=== PATIENT | male | born 1945 | race Caucasian/White ===

== ENCOUNTER 2020-12-06 16:04 | Inpatient (IN) ==
[2020-12-07] MEDS ORDERED: Naloxone 0.4 MG/ML INJ IVP PRN (02:04)
[2020-12-07] MEDS ORDERED: Ondansetron 4 MG/2 ML VIAL IVP PRN (02:04)
[2020-12-07] MEDS ORDERED: Benzonatate 100 MG CAPSULE PO PRN (02:29)
[2020-12-07] MEDS ORDERED: D5% in Water 1,000 ML IVC PRN (02:42)
[2020-12-07] MEDS ORDERED: *HR* Dextrose 50 % in Water (Syg) 50 ML SYRINGE IVP PRN (02:42)
[2020-12-07] MEDS ORDERED: Dextrose Gel 15 GM/37.5 ML TUBE PO PRN ×2 (02:42)
[2020-12-07] MEDS ORDERED: Melatonin 3 MG TABLET PO PRN (02:46)
[2020-12-07] MEDS: Ipratropium 1 PUFF INHALER IH SCH ×4 (04:12→20:26)
[2020-12-07] MEDS ORDERED: *HR* Metoprolol 5 MG/5 ML VIAL IVP ONE ×2 (04:28→05:16)
[2020-12-07 04:30] LABS: Basophils # 0.1 K/mcL (0.0-0.2); Basophils % 0.3 %; Eosinophils % 0.2 %; Hematocrit 42.7 % (37.5-50.1); Hemoglobin 14.3 g/dL (12.9-16.9); Lymphocytes % 6.5 %; Mean Corpuscular HGB Conc 33.5 g/dL (31.6-35.5); Mean Corpuscular Hemoglobin 30.8 pg (28.0-33.3); Mean Platelet Volume 9.4 fL (9.4-12.4); Monocytes # 0.4 K/mcL (0.0-1.3); Monocytes % 2.5 %; Neutrophils # 13.6 K/mcL (1.6-8.9); Platelet Count 371 K/mcL (140-400); Red Blood Count 4.64 M/mcL (4.19-5.50); Red Cell Distribution Width 13.2 % (11.5-14.5); Segmented Neutrophils % 87.5 %; White Blood Count 15.5 K/mcL (4.3-11.1)
[2020-12-07] MEDS: *HR* Metoprolol 5 MG/5 ML VIAL IVP ONE (04:42)
[2020-12-07 04:49] LABS: Alanine Aminotransferase 64 Units/L (7-52); Albumin 2.8 g/dL (3.5-5.7); Alkaline Phosphatase 122 Units/L (34-104); Aspartate Amino Transferase 55 Units/L (13-39); Bilirubin,Direct 0.4 mg/dL (0.0-0.2); Bilirubin,Indirect 0.8 mg/dL (0.0-1.0); Bilirubin,Total 1.2 mg/dL (0.3-1.0); C-Reactive Protein 16 mg/L (Less than 10); Globulin 2.9 g/dL (2.4-3.5); Magnesium 1.8 mg/dL (1.6-2.6); Total Protein 5.7 g/dL (6.4-8.9)
[2020-12-07 05:31] LABS: BUN/Creatinine Ratio 24 (6-26); Blood Urea Nitrogen 18 mg/dL (8-23); Calcium 7.8 mg/dL (8.6-10.3); Carbon Dioxide 25 mEq/L (23-29); Chloride 104 mEq/L (98-107); Glucose 176 mg/dL (70-105); Osmolality,Calculated 292 (280-300); Potassium 3.5 mEq/L (3.5-5.1); Sodium 138 mEq/L (136-145); eGFR For African Americans > 60 (> 60); eGFR For Non-African Americans > 60 (> 60)
[2020-12-07] MEDS ORDERED: Perflutren Lipid Microsphere 1.3 ML in 0.9 % Sodium Chloride 8.7 ML IVP PRN (06:15)
[2020-12-07] MEDS: Insulin LISPRO 300 UNITS/3 ML VIAL SUBQ SCH ×4 (08:49→20:50)
[2020-12-07] MEDS: *HR* Enoxaparin 100 MG/ML SYRINGE SQ SCH ×3 (09:35→20:50)
[2020-12-07] MEDS ORDERED: QUEtiapine Fumarate 25 MG TABLET PO PRN (12:26)
[2020-12-07] MEDS ORDERED: Insulin LISPRO 300 UNITS/3 ML VIAL SUBQ SCH (21:00)
[2020-12-08] MEDS: Ipratropium 1 PUFF INHALER IH SCH ×4 (03:42→19:33)
[2020-12-08 05:50] LABS: BUN/Creatinine Ratio 27 (6-26); Blood Urea Nitrogen 18 mg/dL (8-23); Calcium 8.6 mg/dL (8.6-10.3); Carbon Dioxide 23 mEq/L (23-29); Chloride 102 mEq/L (98-107); Glucose 247 mg/dL (70-105); Osmolality,Calculated 290 (280-300); Potassium 3.8 mEq/L (3.5-5.1); Sodium 135 mEq/L (136-145); eGFR For African Americans > 60 (> 60); eGFR For Non-African Americans > 60 (> 60)
[2020-12-08 06:01] LABS: Basophils # 0.1 K/mcL (0.0-0.2); Basophils % 0.4 %; Eosinophils % 0.1 %; Hemoglobin 15.5 g/dL (12.9-16.9); Immature Granulocytes % 3.3 % (0-4); Lymphocytes # 1.4 K/mcL (0.6-4.6); Lymphocytes % 7.2 %; Mean Corpuscular HGB Conc 33.7 g/dL (31.6-35.5); Mean Platelet Volume 9.8 fL (9.4-12.4); Monocytes # 0.3 K/mcL (0.0-1.3); Monocytes % 1.8 %; Neutrophils # 16.7 K/mcL (1.6-8.9); Platelet Count 446 K/mcL (140-400); Red Cell Distribution Width 13.2 % (11.5-14.5); Segmented Neutrophils % 87.2 %; White Blood Count 19.1 K/mcL (4.3-11.1)
[2020-12-08] MEDS: Insulin LISPRO 300 UNITS/3 ML VIAL SUBQ SCH ×4 (07:22→20:11)
[2020-12-08] MEDS: *HR* Enoxaparin 100 MG/ML SYRINGE SQ SCH ×2 (07:24→19:56)
[2020-12-08] MEDS ORDERED: Perflutren Lipid Microsphere 1.3 ML in 0.9 % Sodium Chloride 8.7 ML IVP PRN ×3 (08:06→15:44)
[2020-12-08] MEDS: Insulin DETEMIR 100 UNIT/ML X5UNITS SUBQ SCH ×2 (10:25→19:56)
[2020-12-09] MEDS: Ipratropium 1 PUFF INHALER IH SCH ×4 (03:29→22:53)
[2020-12-09 06:48] LABS: Basophils # 0.1 K/mcL (0.0-0.2); Basophils % 0.3 %; Eosinophils % 0.1 %; Hematocrit 43.2 % (37.5-50.1); Hemoglobin 14.9 g/dL (12.9-16.9); Immature Granulocytes % 3.2 % (0-4); Lymphocytes # 1.5 K/mcL (0.6-4.6); Lymphocytes % 6.6 %; Mean Corpuscular HGB Conc 34.5 g/dL (31.6-35.5); Mean Corpuscular Hemoglobin 31.2 pg (28.0-33.3); Mean Corpuscular Volume 90.6 fL (83.0-100.0); Mean Platelet Volume 9.7 fL (9.4-12.4); Monocytes # 0.6 K/mcL (0.0-1.3); Monocytes % 2.5 %; Neutrophils # 19.4 K/mcL (1.6-8.9); Platelet Count 446 K/mcL (140-400); Red Blood Count 4.77 M/mcL (4.19-5.50); Red Cell Distribution Width 13.2 % (11.5-14.5); Segmented Neutrophils % 87.3 %; White Blood Count 22.2 K/mcL (4.3-11.1)
[2020-12-09 07:06] LABS: BUN/Creatinine Ratio 28 (6-26); Blood Urea Nitrogen 17 mg/dL (8-23); Calcium 8.6 mg/dL (8.6-10.3); Carbon Dioxide 23 mEq/L (23-29); Chloride 106 mEq/L (98-107); Glucose 121 mg/dL (70-105); Osmolality,Calculated 291 (280-300); Sodium 139 mEq/L (136-145); eGFR For African Americans > 60 (> 60); eGFR For Non-African Americans > 60 (> 60)
[2020-12-09] MEDS: *HR* Enoxaparin 100 MG/ML SYRINGE SQ SCH ×2 (07:55→19:36)
[2020-12-09] MEDS: DilTIAZem CD (24hr) 120 MG CAP.ER.24H PO SCH ×4 (07:56→18:26)
[2020-12-09] MEDS: Insulin LISPRO 300 UNITS/3 ML VIAL SUBQ SCH ×4 (07:58→20:55)
[2020-12-09 08:42] LABS: Bacteria,Urine Few per hpf (None-Few); Bilirubin,Urine Negative (Negative); Blood,Urine Large (Negative); Clarity,Urine Turbid (Clear); Color,Urine Yellow (Yellow); Glucose,Urine (UA) 150 mg/dL (Normal); Ketones,Urine Negative (Negative); Leukocyte Esterase,Urine Moderate (Negative); Mucus,Urine Few per lpf (None-Few); Nitrite,Urine Negative (Negative); PH,Urine 6.5 pH Units (5.0-8.0); Protein,Urine Trace mg/dL (Neg-Trace); RBC,Urine TNTC per hpf (0-3); Specific Gravity,Urine 1.018 (1.010-1.025); Squamous Epithelial Cell,Urine Few per hpf (None-Few); WBC,Urine TNTC per hpf (0-3)
[2020-12-09] MEDS: cefTRIAXone 1,000 MG in Water for inj. (sterile) 10 ML IVP SCH (12:24)
[2020-12-09] MEDS ORDERED: *HR* Metoprolol 5 MG/5 ML VIAL IVP ONE ×4 (13:47→18:14)
[2020-12-09] MEDS: *HR* Metoprolol 5 MG/5 ML VIAL IVP ONE (17:05)
[2020-12-09] MEDS: Insulin DETEMIR 100 UNIT/ML X5UNITS SUBQ SCH (19:36)
[2020-12-10] MEDS: Ipratropium 1 PUFF INHALER IH SCH ×4 (03:47→20:39)
[2020-12-10] MEDS: *HR* Enoxaparin 100 MG/ML SYRINGE SQ SCH ×2 (07:59→21:18)
[2020-12-10] MEDS: cefTRIAXone 1,000 MG in Water for inj. (sterile) 10 ML IVP SCH (08:00)
[2020-12-10] MEDS: DilTIAZem CD (24hr) 120 MG CAP.ER.24H PO SCH (08:00)
[2020-12-10] MEDS: Insulin LISPRO 300 UNITS/3 ML VIAL SUBQ SCH ×4 (08:01→21:19)
[2020-12-10 16:46] LABS: Basophils % 0.3 %; Red Cell Distribution Width 13.2 % (11.5-14.5)
[2020-12-10 16:47] LABS: Basophils # 0.1 K/mcL (0.0-0.2); Hematocrit 37.2 % (37.5-50.1); Hemoglobin 12.9 g/dL (12.9-16.9); Immature Granulocytes % 4.4 % (0-4); Lymphocytes # 1.3 K/mcL (0.6-4.6); Mean Corpuscular HGB Conc 34.7 g/dL (31.6-35.5); Mean Corpuscular Hemoglobin 31.5 pg (28.0-33.3); Mean Corpuscular Volume 90.7 fL (83.0-100.0); Mean Platelet Volume 9.4 fL (9.4-12.4); Monocytes # 0.6 K/mcL (0.0-1.3); Monocytes % 2.3 %; Platelet Count 389 K/mcL (140-400); White Blood Count 26.4 K/mcL (4.3-11.1)
[2020-12-10 16:54] LABS: Neutrophils # 23.2 K/mcL (1.6-8.9)
[2020-12-10 17:06] LABS: BUN/Creatinine Ratio 50 (6-26); Blood Urea Nitrogen 35 mg/dL (8-23); Calcium 8.4 mg/dL (8.6-10.3); Carbon Dioxide 22 mEq/L (23-29); Chloride 98 mEq/L (98-107); Glucose 358 mg/dL (70-105); Osmolality,Calculated 290 (280-300); Potassium 4.7 mEq/L (3.5-5.1); Sodium 129 mEq/L (136-145); eGFR For African Americans > 60 (> 60); eGFR For Non-African Americans > 60 (> 60)
[2020-12-10 17:17] LABS: Platelet Estimate Normal (Normal); Smudge Cells Present (Not Present)
[2020-12-10] MEDS: Insulin DETEMIR 100 UNIT/ML X5UNITS SUBQ SCH (21:19)
[2020-12-11 04:38] LABS: Basophils # 0.1 K/mcL (0.0-0.2); Basophils % 0.4 %; Hematocrit 34.4 % (37.5-50.1); Hemoglobin 11.8 g/dL (12.9-16.9); Immature Granulocytes % 4.8 % (0-4); Lymphocytes # 2.2 K/mcL (0.6-4.6); Lymphocytes % 7.4 %; Mean Corpuscular HGB Conc 34.3 g/dL (31.6-35.5); Mean Corpuscular Hemoglobin 31.1 pg (28.0-33.3); Mean Corpuscular Volume 90.8 fL (83.0-100.0); Monocytes # 1.1 K/mcL (0.0-1.3); Monocytes % 3.7 %; Neutrophils # 24.8 K/mcL (1.6-8.9); Nucleated Red Blood Cells 0.1 /100 WBC (0); Platelet Count 359 K/mcL (140-400); Red Blood Count 3.79 M/mcL (4.19-5.50); Red Cell Distribution Width 13.4 % (11.5-14.5); Segmented Neutrophils % 83.7 %; White Blood Count 29.6 K/mcL (4.3-11.1)
[2020-12-11] MEDS: Ipratropium 1 PUFF INHALER IH SCH ×4 (04:41→19:58)
[2020-12-11 04:52] LABS: BUN/Creatinine Ratio 60 (6-26); Blood Urea Nitrogen 38 mg/dL (8-23); Calcium 8.3 mg/dL (8.6-10.3); Carbon Dioxide 21 mEq/L (23-29); Chloride 102 mEq/L (98-107); Glucose 238 mg/dL (70-105); Osmolality,Calculated 289 (280-300); Potassium 4.4 mEq/L (3.5-5.1); Sodium 131 mEq/L (136-145); eGFR For African Americans > 60 (> 60); eGFR For Non-African Americans > 60 (> 60)
[2020-12-11] MEDS: Insulin LISPRO 300 UNITS/3 ML VIAL SUBQ SCH ×4 (08:35→21:03)
[2020-12-11] MEDS: *HR* Enoxaparin 100 MG/ML SYRINGE SQ SCH ×2 (08:36→20:33)
[2020-12-11] MEDS ORDERED: Insulin LISPRO 300 UNITS/3 ML VIAL SUBQ SCH (11:31)
[2020-12-11] MEDS ORDERED: *HR* Metoprolol 5 MG/5 ML VIAL IVP ONE (17:54)
[2020-12-11] MEDS ORDERED: 0.9 % Sodium Chloride 500 ML IVC ONE ×2 (17:55→20:29)
[2020-12-11] MEDS: DilTIAZem CD (24hr) 120 MG CAP.ER.24H PO SCH (18:07)
[2020-12-11] MEDS: Insulin DETEMIR 100 UNIT/ML X5UNITS SUBQ SCH (21:04)
[2020-12-12] MEDS: Ipratropium 1 PUFF INHALER IH SCH ×4 (03:51→20:29)
[2020-12-12 07:43] LABS: BUN/Creatinine Ratio 65 (6-26); Blood Urea Nitrogen 39 mg/dL (8-23); Calcium 7.8 mg/dL (8.6-10.3); Carbon Dioxide 19 mEq/L (23-29); Chloride 102 mEq/L (98-107); Glucose 274 mg/dL (70-105); Osmolality,Calculated 289 (280-300); Potassium 4.8 mEq/L (3.5-5.1); Sodium 130 mEq/L (136-145); eGFR For African Americans > 60 (> 60); eGFR For Non-African Americans > 60 (> 60)
[2020-12-12 07:54] LABS: Hemoglobin 10.8 g/dL (12.9-16.9); Nucleated Red Blood Cells 0.8 /100 WBC (0); Red Cell Distribution Width 13.9 % (11.5-14.5)
[2020-12-12 07:56] LABS: Hematocrit 30.4 % (37.5-50.1); Mean Corpuscular HGB Conc 35.5 g/dL (31.6-35.5); Mean Corpuscular Hemoglobin 31.9 pg (28.0-33.3); Mean Corpuscular Volume 89.7 fL (83.0-100.0); Mean Platelet Volume 10.8 fL (9.4-12.4); Platelet Count 328 K/mcL (140-400); Red Blood Count 3.39 M/mcL (4.19-5.50)
[2020-12-12 08:09] LABS: White Blood Count 44.5 K/mcL (4.3-11.1)
[2020-12-12] MEDS: Insulin LISPRO 300 UNITS/3 ML VIAL SUBQ SCH ×4 (08:16→21:01)
[2020-12-12] MEDS: *HR* Enoxaparin 100 MG/ML SYRINGE SQ SCH ×2 (08:17→20:45)
[2020-12-12 09:16] LABS: Lymphocytes # 3.1 K/mcL (0.6-4.6); Monocytes # 1.3 K/mcL (0.0-1.3); Neutrophils # 39.6 K/mcL (1.6-8.9); Smudge Cells Present (Not Present)
[2020-12-12 09:17] LABS: Platelet Estimate Normal (Normal); Toxic Granulation Present (Not Present)
[2020-12-12 09:18] LABS: Burr Cells 1+ (Not Present)
[2020-12-12 16:12] LABS: Bacteria,Urine Few per hpf (None-Few); Bilirubin,Urine Negative (Negative); Blood,Urine Moderate (Negative); Clarity,Urine Clear (Clear); Color,Urine Yellow (Yellow); Glucose,Urine (UA) 50 mg/dL (Normal); Ketones,Urine Negative (Negative); Leukocyte Esterase,Urine Small (Negative); Nitrite,Urine Negative (Negative); Protein,Urine Trace mg/dL (Neg-Trace); RBC,Urine 0-3 per hpf (0-3); Squamous Epithelial Cell,Urine Few per hpf (None-Few)
[2020-12-12] MEDS: Nystatin SUSP 5 ML UD.LIQ PO SCH ×2 (17:43→21:02)
[2020-12-12] MEDS: Insulin DETEMIR 100 UNIT/ML X5UNITS SUBQ SCH (21:02)
[2020-12-13] MEDS ORDERED: Simethicone 80 MG TAB.CHEW PO PRN (02:50)
[2020-12-13] MEDS: Saline Nasal Spray 44 ML BOTTLE NS PRN (03:08)
[2020-12-13] MEDS: Ipratropium 1 PUFF INHALER IH SCH ×5 (03:33→20:29)
[2020-12-13 06:22] LABS: Hematocrit 31.2 % (37.5-50.1); Nucleated Red Blood Cells 1.9 /100 WBC (0)
[2020-12-13 06:23] LABS: Hemoglobin 10.6 g/dL (12.9-16.9); Mean Corpuscular Hemoglobin 31.9 pg (28.0-33.3); Platelet Count 304 K/mcL (140-400); Red Blood Count 3.32 M/mcL (4.19-5.50); Red Cell Distribution Width 14.3 % (11.5-14.5)
[2020-12-13 06:27] LABS: White Blood Count 41.2 K/mcL (4.3-11.1)
[2020-12-13 06:41] LABS: BUN/Creatinine Ratio 47 (6-26); Blood Urea Nitrogen 33 mg/dL (8-23); Carbon Dioxide 21 mEq/L (23-29); Chloride 95 mEq/L (98-107); Glucose 266 mg/dL (70-105); Osmolality,Calculated 279 (280-300); Potassium 4.7 mEq/L (3.5-5.1); Sodium 126 mEq/L (136-145); eGFR For African Americans > 60 (> 60); eGFR For Non-African Americans > 60 (> 60)
[2020-12-13 06:52] LABS: Lymphocytes # 5.8 K/mcL (0.6-4.6); Monocytes # 2.5 K/mcL (0.0-1.3); Platelet Estimate Normal (Normal); Toxic Granulation Present (Not Present)
[2020-12-13] MEDS ORDERED: Apixaban 5 MG TABLET PO SCH (09:00)
[2020-12-13] MEDS: Insulin LISPRO 300 UNITS/3 ML VIAL SUBQ SCH ×4 (13:02→21:55)
[2020-12-13] MEDS: Nystatin SUSP 5 ML UD.LIQ PO SCH ×4 (13:03→22:08)
[2020-12-13] MEDS: 0.9 % Sodium Chloride 1,000 ML IVC SCH (13:08)
[2020-12-13] MEDS: DilTIAZem CD (24hr) 240 MG CAP.ER.24H PO SCH (13:33)
[2020-12-13] MEDS ORDERED: Lidocaine -MPF 2% 5 ML VIAL ONE (14:50)
[2020-12-13] MEDS ORDERED: *HR* Propofol 200 MG/20 ML VIAL IVP ONE (14:50)
[2020-12-13] MEDS: Acetaminophen 325 MG TABLET PO PRN (16:12)
[2020-12-13] MEDS: Insulin DETEMIR 100 UNIT/ML X5UNITS SUBQ SCH (21:55)
[2020-12-14] MEDS: *HR* Enoxaparin 100 MG/ML SYRINGE SQ SCH (03:09)
[2020-12-14] MEDS: Ipratropium 1 PUFF INHALER IH SCH ×4 (03:53→20:08)
[2020-12-14] MEDS: 0.9 % Sodium Chloride 1,000 ML IVC SCH (06:06)
[2020-12-14] MEDS: Insulin LISPRO 300 UNITS/3 ML VIAL SUBQ SCH ×4 (09:57→21:11)
[2020-12-14] MEDS: Nystatin SUSP 5 ML UD.LIQ PO SCH ×4 (10:02→21:10)
[2020-12-14 10:34] LABS: BUN/Creatinine Ratio 35 (6-26); Blood Urea Nitrogen 20 mg/dL (8-23); Calcium 7.3 mg/dL (8.6-10.3); Carbon Dioxide 24 mEq/L (23-29); Chloride 99 mEq/L (98-107); Glucose 218 mg/dL (70-105); Osmolality,Calculated 273 (280-300); Potassium 4.3 mEq/L (3.5-5.1); Sodium 127 mEq/L (136-145); eGFR For African Americans > 60 (> 60); eGFR For Non-African Americans > 60 (> 60)
[2020-12-14] MEDS: DilTIAZem CD (24hr) 240 MG CAP.ER.24H PO SCH (11:01)
[2020-12-14] MEDS: Fluconazole 100 MG TABLET PO SCH ×2 (11:02→21:10)
[2020-12-14 13:42] LABS: Basophils % 0.1 %; Hematocrit 22.7 % (37.5-50.1); Hemoglobin 7.7 g/dL (12.9-16.9); Immature Granulocytes % 3.9 % (0-4); Lymphocytes # 1.4 K/mcL (0.6-4.6); Lymphocytes % 7.7 %; Mean Corpuscular HGB Conc 33.9 g/dL (31.6-35.5); Mean Corpuscular Hemoglobin 30.9 pg (28.0-33.3); Mean Corpuscular Volume 91.2 fL (83.0-100.0); Mean Platelet Volume 10.1 fL (9.4-12.4); Monocytes % 5.7 %; Neutrophils # 14.6 K/mcL (1.6-8.9); Nucleated Red Blood Cells 0.4 /100 WBC (0); Platelet Count 153 K/mcL (140-400); Red Blood Count 2.49 M/mcL (4.19-5.50); Red Cell Distribution Width 14.8 % (11.5-14.5); Segmented Neutrophils % 82.6 %; White Blood Count 17.7 K/mcL (4.3-11.1)
[2020-12-14 15:23] LABS: Basophils % 0.2 %; Eosinophils % 0.1 %; Hemoglobin 8.2 g/dL (12.9-16.9); Immature Granulocytes % 3.4 % (0-4); Lymphocytes # 1.2 K/mcL (0.6-4.6); Lymphocytes % 6.2 %; Mean Corpuscular HGB Conc 35.7 g/dL (31.6-35.5); Mean Corpuscular Hemoglobin 33.2 pg (28.0-33.3); Mean Corpuscular Volume 93.1 fL (83.0-100.0); Mean Platelet Volume 10.5 fL (9.4-12.4); Monocytes # 1.1 K/mcL (0.0-1.3); Monocytes % 5.7 %; Neutrophils # 16.3 K/mcL (1.6-8.9); Nucleated Red Blood Cells 0.3 /100 WBC (0); Platelet Count 161 K/mcL (140-400); Red Blood Count 2.47 M/mcL (4.19-5.50); Red Cell Distribution Width 15.1 % (11.5-14.5); Segmented Neutrophils % 84.4 %; White Blood Count 19.3 K/mcL (4.3-11.1)
[2020-12-14] MEDS ORDERED: 0.9 % Sodium Chloride 250 ML IVC ONE (16:24)
[2020-12-14] MEDS ORDERED: 0.9 % Sodium Chloride 250 ML ONE (16:31)
[2020-12-14] MEDS ORDERED: 0.9 % Sodium Chloride 500 ML IVC ONE (17:14)
[2020-12-14 17:41] LABS: Hematocrit 23.6 % (37.5-50.1); Hemoglobin 8.1 g/dL (12.9-16.9)
[2020-12-14 17:53] LABS: INR 1.1; Prothrombin Time 12.3 Seconds (9.4-12.1)
[2020-12-14 17:55] LABS: Activated Partial Thrombo Time 24.2 Seconds (26.0-36.0)
[2020-12-14 18:03] LABS: Albumin 2.4 g/dL (3.5-5.7); Albumin/Globulin Ratio 1.3 (1.1-2.2); Bilirubin,Direct 0.4 mg/dL (0.0-0.2); Bilirubin,Indirect 0.6 mg/dL (0.0-1.0); Globulin 1.9 g/dL (2.4-3.5); Total Protein 4.3 g/dL (6.4-8.9)
[2020-12-14] MEDS: Insulin DETEMIR 100 UNIT/ML X5UNITS SUBQ SCH (21:10)
[2020-12-15 00:09] LABS: Hematocrit 21.5 % (37.5-50.1); Hemoglobin 7.5 g/dL (12.9-16.9)
[2020-12-15] MEDS: 0.9 % Sodium Chloride 1,000 ML IVC SCH (02:38)
[2020-12-15] MEDS: Ipratropium 1 PUFF INHALER IH SCH ×4 (03:50→21:50)
[2020-12-15] MEDS: Fluconazole 100 MG TABLET PO SCH ×2 (07:31→20:23)
[2020-12-15] MEDS: Insulin LISPRO 300 UNITS/3 ML VIAL SUBQ SCH ×4 (07:31→20:24)
[2020-12-15] MEDS: DilTIAZem CD (24hr) 240 MG CAP.ER.24H PO SCH (07:31)
[2020-12-15] MEDS: Nystatin SUSP 5 ML UD.LIQ PO SCH ×4 (07:31→20:22)
[2020-12-15 11:32] LABS: Basophils % 0.1 %; Eosinophils # 0.1 K/mcL (0.0-0.6); Eosinophils % 0.4 %; Hematocrit 20.9 % (37.5-50.1); Hemoglobin 7.1 g/dL (12.9-16.9); Lymphocytes # 1.1 K/mcL (0.6-4.6); Lymphocytes % 6.9 %; Mean Corpuscular Hemoglobin 32.7 pg (28.0-33.3); Mean Corpuscular Volume 96.3 fL (83.0-100.0); Mean Platelet Volume 9.8 fL (9.4-12.4); Monocytes # 0.9 K/mcL (0.0-1.3); Monocytes % 5.8 %; Neutrophils # 12.8 K/mcL (1.6-8.9); Nucleated Red Blood Cells 0.5 /100 WBC (0); Platelet Count 132 K/mcL (140-400); Red Blood Count 2.17 M/mcL (4.19-5.50); Red Cell Distribution Width 16.1 % (11.5-14.5); Segmented Neutrophils % 82.8 %; White Blood Count 15.5 K/mcL (4.3-11.1)
[2020-12-15 11:49] LABS: BUN/Creatinine Ratio 22 (6-26); Blood Urea Nitrogen 14 mg/dL (8-23); Calcium 7.2 mg/dL (8.6-10.3); Carbon Dioxide 24 mEq/L (23-29); Chloride 99 mEq/L (98-107); Glucose 332 mg/dL (70-105); Osmolality,Calculated 279 (280-300); Potassium 4.2 mEq/L (3.5-5.1); Sodium 128 mEq/L (136-145); eGFR For African Americans > 60 (> 60); eGFR For Non-African Americans > 60 (> 60)
[2020-12-15] MEDS: Acetaminophen 325 MG TABLET PO PRN (20:22)
[2020-12-15] MEDS: Insulin DETEMIR 100 UNIT/ML X5UNITS SUBQ SCH (20:27)
[2020-12-15] MEDS: Saline Nasal Spray 44 ML BOTTLE NS PRN (20:29)
[2020-12-16] MEDS: Ipratropium 1 PUFF INHALER IH SCH ×3 (03:54→16:14)
[2020-12-16] MEDS: Acetaminophen 325 MG TABLET PO PRN (05:31)
[2020-12-16 05:56] LABS: Basophils % 0.1 %; Eosinophils # 0.2 K/mcL (0.0-0.6); Eosinophils % 1.5 %; Hematocrit 23.8 % (37.5-50.1); Hemoglobin 7.8 g/dL (12.9-16.9); Immature Granulocytes % 4.3 % (0-4); Lymphocytes # 1.5 K/mcL (0.6-4.6); Lymphocytes % 10.1 %; Mean Corpuscular HGB Conc 32.8 g/dL (31.6-35.5); Mean Corpuscular Hemoglobin 31.7 pg (28.0-33.3); Mean Corpuscular Volume 96.7 fL (83.0-100.0); Mean Platelet Volume 10.1 fL (9.4-12.4); Monocytes # 0.8 K/mcL (0.0-1.3); Monocytes % 5.3 %; Neutrophils # 11.8 K/mcL (1.6-8.9); Nucleated Red Blood Cells 0.4 /100 WBC (0); Platelet Count 148 K/mcL (140-400); Red Blood Count 2.46 M/mcL (4.19-5.50); Red Cell Distribution Width 16.7 % (11.5-14.5); Segmented Neutrophils % 78.7 %
[2020-12-16 06:10] LABS: BUN/Creatinine Ratio 20 (6-26); Blood Urea Nitrogen 11 mg/dL (8-23); Calcium 7.4 mg/dL (8.6-10.3); Carbon Dioxide 26 mEq/L (23-29); Chloride 101 mEq/L (98-107); Glucose 287 mg/dL (70-105); Osmolality,Calculated 282 (280-300); Sodium 131 mEq/L (136-145); eGFR For African Americans > 60 (> 60); eGFR For Non-African Americans > 60 (> 60)
[2020-12-16] MEDS: DilTIAZem CD (24hr) 240 MG CAP.ER.24H PO SCH (10:38)
[2020-12-16] MEDS: Nystatin SUSP 5 ML UD.LIQ PO SCH ×3 (10:39→17:34)
[2020-12-16] MEDS: Insulin LISPRO 300 UNITS/3 ML VIAL SUBQ SCH ×3 (10:39→17:35)
[2020-12-16] MEDS: Fluconazole 100 MG TABLET PO SCH (10:39)
[2020-12-16 13:41] LABS: Alanine Aminotransferase 57 Units/L (7-52); Albumin 2.3 g/dL (3.5-5.7); Albumin/Globulin Ratio 1.2 (1.1-2.2); Alkaline Phosphatase 195 Units/L (34-104); Aspartate Amino Transferase 32 Units/L (13-39); Bilirubin,Direct 0.3 mg/dL (0.0-0.2); Bilirubin,Indirect 0.5 mg/dL (0.0-1.0); Bilirubin,Total 0.8 mg/dL (0.3-1.0); Globulin 1.9 g/dL (2.4-3.5); Total Protein 4.2 g/dL (6.4-8.9)
[2020-12-16 21:01] VITALS: BP 109/62; PULSE 77; TEMP 98.5; O2SAT 90
== END 2020-12-16 21:00 | DRG 177 ==
LOC: SUATTDRO 12-07 01:16 → 2NNU 12-07 01:16 → 3NENU 12-11 01:41
PROVIDERS: ADMIT Internal Medicine; ATTEND Internal Medicine
PROC: ENDOEBX (2020-12-13 15:40)